=== PATIENT | male | born 1965 | race Hispanic/Latino ===

== ENCOUNTER 2017-02-19 16:26 | Emergency (ER) | payer MEDICAID ==
[~2017-02-19 16:26] MED LIST: ABILIFY10 MG OR; ABILIFY5 MG PO; ADDERALL10 MG PO; ALPRAZOLA1 PO; AMANTADINE100 M1 PO; AMLODIPINE10 MG PO; AMLODIPINE5 MG PO; ATENOLOL25 MG PO; AVELOX400 MG PO; BENAZEPRIL20 M1 PO; BENAZEPRIL20 MG PO; CIPRO500 MG OR; CIPRO500 MG PO; CIPROFLOXACN500 MG PO; DOXYCYCL HYC100 MG PO; EFFEXOR XR75 MG/CAP PO; EQ OMEPRAZOLE20 MG PO; FLEXERIL OR; FLEXERIL PO; FLOMAX0.4 MG OR; INDOCIN25 MG PO; KLONOPIN1 MG OR; LEVAQUIN750 MG PO; LORTAB 1010 MG PO; LORTAB 5 OR; LORTAB 5/3255 MG PO; LORTAB 7.5 OR; LORTAB5 PO; LOTREL 5/101 CAP OR; LOTREL1 CA2 OR; LOTREL1 CA2 PO; MEDDOSEPAK PO; MIRALAX3350 NF PO; MOTRIN800 MG OR; NIZORAL2 % EX; NORCO1 TAB PO; NORVASC10 M1 PO; OXYCOD-APAP1 TAB PO; OXYCONTIN15 MG PO; OXYCONTIN30 MG PO; PAXIL30 MG OR; PAXIL40 MG PO; PERCOCET 10/31 COMBO PO; PERCOCET 5/321 COMBO PO; PERCOCET 5/325M1 TAB OR; PERCOCET 5/325M1 TAB PO; PERCOCET1 TA4 PO; PHENERGAN25 MG/TAB PO; PREVACID30 M2 PO; PRILOSEC40 MG OR; PRILOSEC40 MG PO; RESTORIL15 MG PO; RESTORIL30 MG PO; SINEQUAN10 MG PO; TORADOL PO; TRAMADOL HCL50 MG PO; TRAZODONE50 MG OR; ULTRAM50 M1 PO; VICODIN HP1 TA1; VICODIN HP1 TA1 PO; VICOPROFEN PO; VOLTAREN GEL TOP; VOLTAREN1%GEL TOP; XANAX XR1 MG OR; XANAX1 MG PO; ZOFRAN ODT4 MG OR; ZYRTEC-D AL1 PO
== END 2017-02-19 16:50 | disposition expired | DRG 298 ==
LOC: ED 16:26
PROC: 0BH17EZ Insertion of Endotracheal Airway into Trachea, Via Natural or Artificial Opening (ICD-10-PCS; principal; 2017-02-19)
DX: I46.9 Cardiac arrest, cause unspecified (principal)